=== PATIENT | female | born 1960 ===

== ENCOUNTER 2021-09-28 08:21 | Day surgery (SDC) | payer OTHER ==
[~2021-09-28] VITALS: Ht 160 cm; Wt 59.0 kg
[~2021-09-28 08:21] MED LIST: VASOTEC5 MG PO
[2021-09-28] MEDS ORDERED: IBU600 MG PO (11:49)
== END 2021-09-28 13:35 | disposition home or self-care (01) ==
LOC: CIR.AMB 08:21
PROVIDERS: ATTEND Obstetrics & Gynecology Gynecology
DX: N84.0 Polyp of corpus uteri (principal); I10 Essential (primary) hypertension